=== PATIENT | female | born 1980 | race Two or more races ===

== ENCOUNTER 2019-04-29 05:00 | Emergency (ER) | payer SELFPAY ==
[~2019-04-29] VITALS: Ht 167.6 cm; Wt 49.0 kg
--- NOTE | 2019-04-29 05:15 | NUR ---
BIBF. C/O "L EAR PAIN ON AND OFF, 01/28. +SORE THROAT" -SOB AOX4 .VSS
[2019-04-29] MEDS ORDERED: KETOROLAC TROMETHAMINE INJ 30 MG/ML VIAL ONE (06:38)
[2019-04-29 07:00] VITALS: BP 132/78
[2019-04-29] MEDS ORDERED: KETOROLAC TROMETHAMINE INJ 60 MG/2 ML VIAL IM ONE (07:00)
== END 2019-04-29 07:01 | disposition home or self-care (01) ==
LOC: ER 05:01
DX: J32.9 Chronic sinusitis, unspecified (principal); Z87.442 Personal history of urinary calculi; Z91.040 Latex allergy status
CPT/HCPCS: 96372; 99283; J1885